=== PATIENT | male | born 1980 | race Caucasian/White ===

== ENCOUNTER 2021-05-15 10:08 | Inpatient (IN) ==
--- NOTE | 2021-04-28 11:56 | PAT Medication Instructions ---
Medication Instructions Date of Service April 28, 2021 Home Medications baclofen 10 mg tablet 10 mg PO DAILY PRN cholecalciferol (vitamin D3) 25 mcg (1,000 unit) tablet (Vitamin D3) 25 mcg PO QAM cyclobenzaprine 10 mg tablet 10 mg PO DAILY PRN ergocalciferol (vitamin D2) 1,250 mcg (50,000 unit) capsule (Vitamin D2) 1,250 mcg PO WK meloxicam 15 mg tablet 15 mg PO DAILY PRN Continue as directed ergocalciferol (vitamin D2) 1,250 mcg (50,000 unit) capsule (Vitamin D2) 1,250 mcg PO WK (just do not take morning of surgery) ASK your surgeon for instructions meloxicam 15 mg tablet 15 mg PO DAILY PRN DO NOT take the morning of surgery baclofen 10 mg tablet 10 mg PO DAILY PRN cholecalciferol (vitamin D3) 25 mcg (1,000 unit) tablet (Vitamin D3) 25 mcg PO QAM cyclobenzaprine 10 mg tablet 10 mg PO DAILY PRN Take evening before surgery baclofen 10 mg tablet 10 mg PO DAILY PRN (if needed) cyclobenzaprine 10 mg tablet 10 mg PO DAILY PRN (if needed) OTHERWISE NOTHING TO EAT OR DRINK AFTER MIDNIGHT Other Notes If you have any questions please call us at [phone] or [phone] or [phone] or [phone]
--- NOTE | 2021-05-01 09:43 | Anesthesiology Consultation ---
Date of Service May 01, 2021 Assessment & Plan (1) Encounter for pre-operative examination: - surgeon ordered medical clearance. - EGD/colonoscopy 05/11/2021. Bianca at surgeon's office made aware, case discussed with Dr. Clarke who advised this interval between procedures is acceptable. - COVID screening: Per assessment on 05/01/2021: Travel screen negative, no known COVID-19 positive contacts or current COVID-19 related symptoms in past 2 weeks. Surgeon arranging preop COVID testing, scheduled 05/11/2021. Awaiting results. Chart Review Chart Review: Pending: Refer to Additional Notes / Consult section and Patient seen in Pre Admission Testing Teaching & Discussion Pre-Anesthesia Teaching/Discussion Notes: Instructed NPO after midnight before surgery, except medications with 15 cc of water. Medication instructions provided according to the PAT guidelines. History Surgery Operation Date: 05/15/21 07:45 Proposed Procedures p L5-S1 Decompression and Fusion, Spinal Cord Monitoring - Levi Ma DO Height/Weight Height: 6 ft Weight: 83.915 kg Allergies Allergy/AdvReac Type Severity Reaction Status Date / Time No Known Allergies Allergy Mild Unverified 04/27/21 09:02 Medications Home Medications Medication Instructions Recorded Confirmed Last Taken baclofen 10 mg tablet 10 mg PO DAILY PRN 04/27/21 04/27/21 Unknown cholecalciferol (vitamin D3) 25 25 mcg PO QAM 04/27/21 04/27/21 Unknown mcg (1,000 unit) tablet (Vitamin D3) cyclobenzaprine 10 mg tablet 10 mg PO DAILY PRN 04/27/21 04/27/21 Unknown ergocalciferol (vitamin D2) 1,250 1,250 mcg PO WK 04/27/21 04/27/21 Unknown mcg (50,000 unit) capsule (Vitamin D2) meloxicam 15 mg tablet 15 mg PO DAILY PRN 04/27/21 04/27/21 Unknown Past Medical History Medical History Back pain Change in bowel habits upcoming colonoscopy/egd 05/11/21 History of COVID-19 03/2020; loss of taste/smell, cough, sob --> pneumonia; resolved. Lumbar disc disease Tinnitus Patient denies h/o stroke, seizures, heart attack, heart failure, DM, HTN, blood clots or blood transfusions. Exercise / Class Metabolic Activity II 4-5 Yardwork/Stairs/Walk up hill (walks 7-8 miles at work, with a few stairs, denies CP or SOB) Past Family History Family History Other No family history of adverse response to anesthesia Past Surgical History Surgical History History of wisdom tooth extraction Past Anesthesia History No Hx of Anesthesia Complications and No Family Hx of Anesthesia Complications History of PONV No Hx of PONV and No Hx of Motion Sickness Social History Smoking Status: Current every day smoker tobacco type: cigarettes Smoking cigarettes per day: 1/2 ppd-advised Do You Dip or Chew Tobacco: No Hx Alcohol Use: Yes Alcohol type: beer alcohol intake frequency: a few times a week Hx Substance Use: No substance use type: does not use Review of Systems Snoring, occasionally snores himself awake, denies witnessed apneas or sleep studies. Occasional reflux. Patient denies chest pain, shortness of breath, dyspnea on exertion, fever, chills, cough, wheezing, or palpitations. Physical Exam Vital Signs Vitals BP 121/76 P 66 TEMP 98.1 SP02 % on RA RESP 17 Physical Full cervical extension range of motion without pain Full TMJ range of motion TMD 3.5 finger breaths Mallampati Score 3 Dentition: intact, denies chipped, loose or missing teeth, caps/crowns, implants or bridges Lungs: normal respiratory effort. Clear throughout to auscultation, no adventitious breath sounds Cardiac: regular rate and rhythm, no murmurs noted Carotid arteries: negative bruit bilat Lab Results Anesthesia Preop Results Results Anesthesia Widget: PT 10.4 Seconds (9.0-12.0) 05/01/21 PTT 29.7 Seconds (21.0-31.0) 05/01/21 INR 1.0 (0.9-1.1) 05/01/21 Urine Appearance Clear 04/04/21 Blood Type O Positive 05/01/21 Antibody Screen NEGATIVE 05/01/21 Testing Laboratory Results 04/04/2021 WBC: 5.8 H/H: 16.2/47.5 PLATELETS: 204 SODIUM: 144 POTASSIUM: 4.3 CHLORIDE: 110 CO2: 21 BUN: 16 CREATININE: 1.1 GLUCOSE: 70 Electrocardiogram Date: 05/01/21 NSR, rate 64 bpm Chest X-Ray Date: 05/01/21 FINDINGS: Frontal and lateral radiographs of the chest demonstrate the cardiomediastinal silhouette to be within normal limits. The lungs are clear of alveolar opacities. There is no evidence for effusion bilaterally. There is no evidence for vascular congestion. There is no acute osseous pathology. Dextroscoliotic curve of the thoracic spine is again seen. IMPRESSION: 1. No acute cardiopulmonary disease.
[~2021-05-15 10:08] MED LIST: ACETAMINOPHEN 500 MG TAB PO SCH; CeleBREX 200 MG CAP PO SCH; GABAPENTIN 900 MG DOSE PO SCH; LR 15ML/HR IV SCH; ceFAZolin 2000MG 2,000 MG/15 ML SYR IV SCH
[2021-05-15] MEDS ORDERED: fentaNYL citrate 100 MCG/2 ML VIAL ONE (11:17)
[2021-05-15] MEDS ORDERED: GLYCOPYRROLATE 0.2 MG/ML VIAL ONE (11:17)
[2021-05-15] MEDS ORDERED: LIDOCAINE 2% 2 ML VIAL/AMP(20MG/ML) INFIL ONE (11:17)
[2021-05-15] MEDS ORDERED: PROPOFOL IV EMULSION 10 MG/ML 20 ML VIAL IV ONE (11:17)
[2021-05-15] MEDS ORDERED: ONDANSETRON INJ 2 MG/ML 2 ML VIAL ONE (11:17)
[2021-05-15] MEDS ORDERED: NEOSTIGMINE METHYLSULFATE 1 MG/ML 10ML VIAL ONE (11:17)
[2021-05-15] MEDS ORDERED: MIDAZOLAM HCL 1 MG/ML 2ML VIAL ONE (11:17)
[2021-05-15] MEDS ORDERED: DEXAMETHASONE SOD INJ 4 MG/ML VIAL ONE (11:17)
[2021-05-15] MEDS ORDERED: ONDANSETRON INJ 2 MG/ML 2 ML VIAL IV PRN ×2 (11:26→15:55)
[2021-05-15] MEDS ORDERED: PROMETHAZINE HCL 12.5 MG in SODIUM CHLORIDE 0.9% 50 ML IV PRN ×2 (11:26→15:55)
[2021-05-15] MEDS ORDERED: FLUMAZENIL 0.1 MG/1 ML 10 ML VIAL IV PRN (11:26)
[2021-05-15] MEDS ORDERED: LABETALOL HCL IV 5 MG/ML 20ML IV PRN (11:26)
[2021-05-15] MEDS ORDERED: ATROPINE SULFATE 0.1 MG/ML 10ML SYR IV PRN (11:26)
[2021-05-15] MEDS ORDERED: HYDROmorphone INJ 1 MG/ML SYRINGE IV PRN ×2 (11:26→15:55)
[2021-05-15] MEDS ORDERED: ePHEDrine sulfate 50 MG/ML AMP IV PRN (11:26)
[2021-05-15] MEDS ORDERED: NALOXONE HCL 0.4 MG/1 ML VIAL/CARP IV PRN ×2 (11:26→15:55)
--- NOTE | 2021-05-15 12:22 | History & Physical Bridge Note ---
Date of Service May 15, 2021 History & Physical Bridge Note I have examined the patient, reviewed the History & Physical and in the interval since the performance of the History & Physical I have noted the following changes of clinical significance: no changes noted
--- NOTE | 2021-05-15 12:23 | History & Physical Report ---
Date of Service May 15, 2021 Assessment & Plan (1) Neurogenic claudication due to lumbar spinal stenosis: Plan: L5-S1 decompression and fusion History of Present Illness Chief Complaint: Back and leg pain Primary Care Provider: NO PCP This is a 41-year-old male presents with chronic persistent back and leg pain af ter failing course of care is here for surgical intervention. Allergies Allergy/AdvReac Type Severity Reaction Status Date / Time No Known Allergies Allergy Mild Verified 05/15/21 10:16 Home Medications Medication Instructions Recorded Confirmed Type baclofen 10 mg tablet 10 mg PO DAILY PRN 04/27/21 05/15/21 History cholecalciferol (vitamin D3) 25 25 mcg PO QAM 04/27/21 05/15/21 History mcg (1,000 unit) tablet (Vitamin D3) cyclobenzaprine 10 mg tablet 10 mg PO DAILY PRN 04/27/21 05/15/21 History ergocalciferol (vitamin D2) 1,250 1,250 mcg PO WK 04/27/21 05/15/21 History mcg (50,000 unit) capsule (Vitamin D2) meloxicam 15 mg tablet 15 mg PO DAILY PRN 04/27/21 05/15/21 History Past Med/Surg History Medical History Back pain Change in bowel habits upcoming colonoscopy/egd 05/11/21 History of COVID-19 03/2020; loss of taste/smell, cough, sob --> pneumonia; resolved. Lumbar disc disease Tinnitus Surgical History History of wisdom tooth extraction Family History Other No family history of adverse response to anesthesia Social History Smoking Status: Current every day smoker Cigarettes Per Day: 1/2 ppd-advised; Second Hand Exposure: No; Do You Dip or Chew Tobacco: No; Tobacco Cessation Education Requested by Patient: No Hx Alcohol Use: Yes Alcohol type: beer Hx Substance Use: No Preferred Language: Nepalese Communication Ability: Effective Bandmill Operator Required: No Beliefs That Will Affect Care: None marital status: Current Living Situation: Spouse current occupational status: employed 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) Vital Signs (Past 12 Hours) Vital Signs Temp Pulse Resp BP Pulse Ox 05/15/21 10:29 36.7 C 75 18 125/76 95
[2021-05-15] MEDS ORDERED: ceFAZolin 330 MG/ML 1 GM VIAL ONE (12:36)
[2021-05-15] MEDS ORDERED: BUPIVACAINE/EPINEPHRINE 0.25% 1:200,000 30 ML VIAL ONE (12:36)
[2021-05-15] MEDS ORDERED: HYDROmorphone INJ 2 MG/ML SYR/VIAL ONE (13:28)
[2021-05-15] MEDS ORDERED: ROCURONIUM BROMIDE 10 MG/ML 5 ML VIAL IV ONE (13:33)
[2021-05-15] MEDS ORDERED: FLOSEAL HEMOSTATIC MATRIX 10ML TOP ONE (13:42)
--- NOTE | 2021-05-15 14:33 | Operative Report ---
Post Operative Report Pre & Post Diagnosis Operation Date: 05/15/21 11:25 Pre-Op Diagnosis: Neurogenic claudication due to lumbar spinal stenosis Post-Op Diagnosis: Neurogenic claudication due to lumbar spinal stenosis I identified the patient and participated in the time-out.: Yes Procedure Operation Date: 05/15/21 11:25 Actual Procedures #1 lumbar decompression with bilateral medial facetectomies and foraminotomies L4-L5 L5-S1. #2 posterior spinal fusion L5-S1. #3 placement posterior instrumentation L5-S1. #4 interbody fusion L5-S1. #5 placement of titanium 13 x 26 mm cage at L5-S1. #6 placement locally harvested morselized autograft in the posterior gutters. #7 placement of I factor combined with V toss in the interbody space and posterior lateral gutters. Surgeon Levi Ma, Filler In Cheli Grover Estimated Blood Loss 75 Findings Consistent with Post-Op Diagnosis Specimens None Indications This is a 41-year-old male who presents with chronic persistent lumbar radiculopathy. Failed extensive course of nonoperative care is here for surgical intervention. Description of Procedure Patient was met with identified informed consent obtained. Patient was then taken to the operative suite underwent an patient placed in a prone position on the Darek table on top of the Jarek frame. All bony prominences well-padded eyes inspected to ensure no external pressure placed upon them. This point the lumbar spine was prepped and draped in the normal sterile fashion. Sharp dissection with the assistance of Bovie cautery was performed down to and exposing the lamina and transverse processes L5 and the sacral ala bilaterally. From caudal to cephalad fashion complete laminectomy of L5 partial laminectomy of L4 was performed occluding bilateral medial facetectomies and foraminotomies dressing severe neural compression. Pedicle screws were then placed in L5 and S1 levels bilaterally with assistance of fluoroscopy and the appropriately sized kassidy placed. By way the transforaminal approach and left complete discectomy was performed endplates curetted to subcortical bleeding bone and a 13 x 26 mm titanium cage filled with I factor tapped in position. The rods were then compressed locked into final position bilaterally. The transverse processes of L5 and sacral ala burred to subcortically bone. I factor combined with Vitoss and locally harvested morselized autograft was placed in the posterior gutters. 15 round ADRYAN drain inserted. The incision was then closed with 1 Vicryl in the fascia 2-0 Vicryl subcutaneously and 4 Monocryl for final skin closure. Steri- Strips dressings placed. Patient will continue PACU stable condition. Please note spinal cord monitoring was utilized at the procedure no changes noted. Lastly Cheli Grover was present at the entire surgery and while the patient positioning complex portions of the surgery and final skin closure. I attest to the content of the Intraoperative Record and any orders documented therein. Any exceptions are noted below.
[2021-05-15] MEDS ORDERED: PHENYLEPHRINE 100MCG/ML 5ML SYR ONE (14:53)
--- NOTE | 2021-05-15 14:56 | Fluoroscopy Report ---
FL lumbar spine 2-3V CLINICAL HISTORY: L5-S1 DFI TECHNIQUE: 2 views were obtained with the C-arm in the OR with the above procedure. Total fluoroscopy time was 24.3 seconds. Total skin dose was 14.59 mGy. Comparison: None available at the time of this dictation. FINDINGS/IMPRESSION: Intraoperative images were obtained of L5-S1 decompression/fusion. Please correlate with intraoperative fluoroscopy and operative report. ACT 112: Negative or not required by law. Electronically signed by: Christian Hull M.D. 05/15/2021 2:55 PM
[2021-05-15] MEDS: fentaNYL citrate 100 MCG/2 ML VIAL IV PRN ×2 (15:07→15:12)
--- NOTE | 2021-05-15 15:21 | Anesthesiology Progress Note ---
Date of Service May 15, 2021 Anesthesia Post Procedure Vital Signs Vital Signs: Temp Pulse Pulse Resp BP Pulse Ox 05/15/21 15:15 72 13 121/87 98 05/15/21 15:05 70 12 122/82 100 05/15/21 14:55 68 15 128/81 100 05/15/21 14:46 36.1 C L 71 16 125/78 98 05/15/21 10:29 36.7 C 75 18 125/76 95 Pain Intensity Back: Pain Intensity: 3 Transfer of Care Handoff Completed per policy Notes Mental Status: alert / awake / arousable Patient Amnestic to Procedure: Yes Nausea / Vomiting: adequately controlled Pain: adequately controlled Airway Patency, RR, SpO2: stable & adequate BP & HR: stable & adequate Hydration State: stable & adequate Anesthetic Complications: no major complications apparent
[2021-05-15] MEDS ORDERED: METOCLOPRAMIDE HCL INJ 5 MG/ML 2 ML VIAL IV PRN (15:55)
[2021-05-15] MEDS ORDERED: ACETAMINOPHEN 1,000 MG/100 ML VIAL IV PRN (15:55)
[2021-05-15] MEDS ORDERED: traMADol HCL 50 MG TABLET PO PRN (15:55)
[2021-05-15] MEDS ORDERED: FAMOTIDINE 20 MG TAB PO PRN (15:55)
[2021-05-15] MEDS ORDERED: MAGNESIUM HYDROXIDE SUSP 30 ML UDC PO PRN (15:55)
[2021-05-15] MEDS ORDERED: diphenhydrAMINE Capsule 25 MG CAP PO PRN (15:55)
[2021-05-15] MEDS ORDERED: LACTATED RINGER'S 1,000 ML IV SCH (15:55)
[2021-05-15] MEDS ORDERED: DO NOT ADMINISTER PNEUMOCOCCAL VACCINE PRN (15:55)
[2021-05-15] MEDS ORDERED: ONDANSETRON 4 MG OD TAB PO PRN (15:55)
[2021-05-15] MEDS ORDERED: SOD PHOSPHATE/SOD BIPHOSPHATE ENEMA 132 ML BTL PR PRN (15:55)
[2021-05-15] MEDS ORDERED: ACETAMINOPHEN 500 MG TAB PO PRN (15:55)
[2021-05-15] MEDS ORDERED: LORazepam 2 MG/1 ML VIAL IV PRN (15:55)
[2021-05-15] MEDS ORDERED: LORazepam 0.5 MG TAB PO PRN (15:55)
[2021-05-15] MEDS ORDERED: ALUMINUM/MAGNESIUM SUSP 30 ML UDC PO PRN (15:55)
[2021-05-15] MEDS ORDERED: bisacodyL 10 MG SUPP PR PRN (15:55)
[2021-05-15] MEDS ORDERED: hydrOXYzine HCl 25 MG TAB PO PRN (15:55)
[2021-05-15] MEDS ORDERED: HYDROmorphone INJ 0.5 MG/0.5 ML SYR IV PRN (15:55)
[2021-05-15] MEDS ORDERED: DO NOT ADMINISTER FLU VACCINE PRN (15:55)
[2021-05-15] MEDS: KETOROLAC 30 MG/ML VIAL IV SCH ×2 (16:49→21:30)
[2021-05-15] MEDS: oxyCODONE HCL IR 5 MG TAB (IMMEDIATE RELEASE) PO PRN (19:45)
[2021-05-15] MEDS: ceFAZolin 2000MG 2,000 MG/15 ML SYR IV SCH (21:29)
[2021-05-15] MEDS: DOCUSATE SODIUM/SENNA 50/8.6MG TAB PO SCH (21:34)
[2021-05-16] MEDS: ceFAZolin 2000MG 2,000 MG/15 ML SYR IV SCH (05:04)
[2021-05-16] MEDS: KETOROLAC 30 MG/ML VIAL IV SCH ×2 (05:04→10:20)
[2021-05-16] MEDS: POLYETHYLENE (MIRALAX) 17 GM PACK PO SCH ×4 (05:05→23:08)
[2021-05-16 06:24] LABS: Basophils # (auto) 0.01 K/uL (0-0.2); Basophils % (auto) 0.1 %; Hematocrit (blood only) 43.2 % (42-52); Hemoglobin 14.7 g/dL (14.0-18.0); Immature Granulocytes # (auto) 0.04 K/uL (0.00-0.02); Immature Granulocytes % (auto) 0.4 %; Lymphocytes # (auto) 0.97 K/uL (1.2-3.4); Lymphocytes % (auto) 8.6 %; Mean Corpuscular Hemoglobin 31.8 pg (25-34); Mean Corpuscular Volume 93.5 fL (80-100); Mean Platelet Volume 10.9 fL (7.4-10.4); Monocytes % (auto) 6.2 %; Neutrophils # (auto) 9.57 K/uL (1.4-6.5); Neutrophils % (auto) 84.7 %; Platelet Count 215 K/uL (130-400); RDW Coefficient of Variation 12.3 % (11.5-14.5); RDW Standard Deviation 42.2 fL (36.4-46.3); Red Blood Count 4.62 M/uL (4.7-6.1); White Blood Count 11.29 K/uL (4.8-10.8)
[2021-05-16 06:46] LABS: BUN Creatinine Ratio 18.4 (10-20); Calcium 8.7 mg/dl (8.5-10.1); Creatinine Clr Calc Pharmacy 93.6 ml/min; Est GFR (African American) 92.1 ml/min; Est GFR (Non-African American) 79.4 ml/min; Potassium 4.6 mmol/L (3.5-5.1)
[2021-05-16] MEDS: CHOLECALCIFEROL 1,000 UNITS 25 MCG TAB PO SCH (08:23)
[2021-05-16] MEDS: dexAMETHasone 6 MG in SYRINGE 0 ML IV SCH (08:23)
[2021-05-16] MEDS ORDERED: ERGOCALCIFEROL 50,000 UNITS 1250 MCG CAP PO SCH (09:00)
--- NOTE | 2021-05-16 12:26 | Orthopedic Progress Note ---
Date of Service May 16, 2021 Assessment & Plan (1) Neurogenic claudication due to lumbar spinal stenosis: Plan: This time continue physical therapy monitor his ADRYAN output hopefully discharge home tomorrow Admission and Anticipated Discharge Date Admission Date: May 15, 2021 Subjective Back pain controlled leg symptoms improved Physical Exam Physical Exam: Patient is comfortable. Is good strength testing. Results & Data ([facility]) Vital Signs (Past 12 Hours) Vital Signs Temp Pulse Resp BP Pulse Ox 05/16/21 11:57 36.7 C 58 L 16 123/69 99 05/16/21 07:28 36.7 C 48 L 16 122/75 98 05/16/21 03:27 36.7 C 55 L 16 121/69 98
[2021-05-16] MEDS: oxyCODONE HCL IR 5 MG TAB (IMMEDIATE RELEASE) PO PRN ×2 (16:04→20:29)
[2021-05-16] MEDS: DOCUSATE SODIUM/SENNA 50/8.6MG TAB PO SCH (20:30)
[2021-05-17] MEDS: POLYETHYLENE (MIRALAX) 17 GM PACK PO SCH ×2 (05:40→13:11)
[2021-05-17] MEDS: oxyCODONE HCL IR 5 MG TAB (IMMEDIATE RELEASE) PO PRN ×2 (05:40→13:11)
[2021-05-17] MEDS: dexAMETHasone 6 MG in SYRINGE 0 ML IV SCH (08:29)
[2021-05-17] MEDS: CHOLECALCIFEROL 1,000 UNITS 25 MCG TAB PO SCH (08:29)
--- NOTE | 2021-05-17 10:33 | Discharge Summary ---
Date of Service May 17, 2021 Admission HPI Per Admitting Provider This is a 41-year-old male presents with chronic persistent back and leg pain after failing course of care is here for surgical intervention. Principal Diagnosis Lumbar spinal stenosis with radiculopathy Discharge Data Allergies Allergy/AdvReac Type Severity Reaction Status Date / Time No Known Allergies Allergy Mild Verified 05/15/21 10:16 Procedures Performed Operation Date: 05/15/21 11:25 Actual Procedures p L5-S1 Decompression and Fusion, Application of I-Factor Spinal Cord Monitoring, (Not Applicable) - Levi Ma DO Ordered Studies 05/15/21 11:25 [place] lumbar spine 2-3V Routine Hospital Course (1) Neurogenic claudication due to lumbar spinal stenosis: Patient with lumbar decompression fusion tolerated this well second orthopedic for possibly. Postop day 1 he was up and ambulating Eliot postop day #2. ADRYAN drain decreased appropriately. Leg pain markedly improved. Excellent strength testing. Subsequent discharge home. Discharge orders instructions from the chart for further view. Total Time Total Time Spent Total Time Spent (In Minutes): 20 minutes Discharge Plan Discharge Items Patient Disposition: Home - Self-Care Reason For Visit: Thoracolumbar and Lumbosacral Intervertebral Discharge Diagnosis: Lumbar spinal stenosis with radiculopathy Activity: As commented below Non-emergency contact: Primary Care Provider Call non-emergency contact if: you have any medication questions Follow-up/Referrals: PCP,ISMA [Primary Care Provider] - Diet: Regular Addtl Attending Provider Instructions: ACTIVITY RECOMMENDATIONS: SELF CARE INSTRUCTIONS AFTER THORACIC/LUMBAR FUSIONS 1. You may walk to your tolerance. It is good exercise for your legs and back. Expect some back and intermittent leg aches and pains. 2. You may perform "counter-top" level activities (make a sandwich, gustavo with a project, etc.). 3. No bending or lifting of more than 10 pounds or back twisting of any nature (roll like a log when turning in bed). 4. You may ride in a car for 20-30 minutes at a time. No driving until after your first visit with your doctor. 5. Frequent changes of position and restricting sitting to 30 minutes at a time will help limit the amount of back spasms and stiffness you may experience. 6. You may discontinue the use of ambulatory aids (cane, crutches, etc.) once your strength and confidence allow. 7. You may termination clerk the shower and let water strike your incision when you arrive home at least once daily. Do not take a tub bath, sit in a hot tub or go into a swimming pool until after your first recheck in the office. SPECIAL CARE INSTRUCTIONS: VERY IMPORTANT TO READ AND REVIEW A. Your surgical incision has been closed with a cosmetic suture under the skin that will dissolve in about 6 weeks. In 14 days, you can use a pair of clean scissors and cut the suture that is left outside of the skin at the ends of your incision. 1. The small skin tapes can be removed 7 days after surgery if they have not fallen off by that point. 2. You may keep the wound open to air as much as possible to promote healing after post-op day number 5 unless told otherwise by your doctor. 3. If you think the wound looks like it is becoming infected (redness or worsening drainage) and/or you are experiencing fever, chill or worsening back pain and muscle spasms, contact the office so that we may evaluate you as soon as possible. B. Complications are uncommon, but please contact us if you have any signs or symptoms of: 1. wound infection (fever higher than 102.5 degrees F, redness, separation of wound, drainage, or increasing pain from the incision) 2. blood clots in legs (pain, swelling, redness and warmth in legs) 3. urinary tract infection (fever higher than 102.5 degrees F, burning upon urination or increased frequency of urination) 4. nerve problems (inability to walk on your toes or heels, numbness, loss of bowel or bladder control) 5. any other symptoms that concern you C. Please call the office at if you have any concerns or questions about your operation or recovery. D. No smoking! Smoking drastically decreases the chance of a solid fusion. E. Do not take any anti-inflammatory medications (Indocin, Advil, Motrin, Aspirin, Naprosyn, etc.) as these may inhibit the chance of a solid fusion. Tylenol is okay to take for pain. MANAGING PAIN AFTER SPINAL SURGERY 1. Narcotic medication is intended for short-term use and will be provided for surgical pain. Surgical pain usually lasts for a period of 4-6 weeks. Narcotic medication includes Percocet, Vicodin, Darvocet, Tylenol #3 or Lortab. 2. Longer-term pain is more appropriately treated with non-narcotic medication such as Tylenol ES. 3. Muscle spasm is not appropriately treated with narcotics. Muscle relaxers such as Soma, Flexeril or Skelaxin can be used along with Tylenol ES. 4. Remember that we all live with some "aches and pains". This is not unusual or uncommon after an injury or as we get older. a. Back pain is expected and may include muscle spasms for 4 to 6 weeks after surgery. The pain should gradually improve. If the pain worsens for no apparent reason, please contact the office. b. Intermittent leg pain may also be experienced and should not be concerned about unless it worsens for no apparent reason. If so, please contact the office. 5. We will provide appropriate medication within the normal guidelines of their prescribed use. We will also be very cautious and aware of potential abuse and extended duration of patients' medication needs. a. Pain medications are for your comfort and to assist with sleep and rest so that the tissue can heal. They are not provided in order to return to normal activity and should not be used through the day. To do so or worsening pain at night can result from ongoing tissue damage and development of tolerance to the prescribed medicine. 6. Please allow 2-3 days to process refills. Prescriptions will not be mailed but must be picked up at the office. FOLLOW UP VISIT: Keep your scheduled follow-up appointment. Any questions, please call the office at . Pending Studies at Discharge: No Stand-Alone Forms: [facility], Opioid Pain Management, Smoking Cessation Medications and DC Order Prescriptions: New tramadol 50 mg tablet 50 mg PO Q6H PRN (Reason: pain, moderate) Qty: 30 RF: 0 oxycodone 5 mg tablet 5 mg PO Q6H PRN (Reason: pain, severe) Qty: 30 RF: 0 Continued cyclobenzaprine 10 mg Tablet 10 mg PO DAILY PRN (Reason: Muscle Spasm) RF: 0 baclofen 10 mg Tablet 10 mg PO DAILY PRN (Reason: Muscle Spasm) RF: 0 ergocalciferol (vitamin D2) [Vitamin D2] 1,250 mcg (50,000 unit) Capsule 1,250 mcg PO WK RF: 0 cholecalciferol (vitamin D3) [Vitamin D3] 25 mcg (1,000 unit) Tablet 25 mcg PO QAM RF: 0 Discontinued meloxicam 15 mg Tablet 15 mg PO DAILY PRN (Reason: Pain) RF: 0 Discharge Orders: Discharge Order (Routine); Ordered 05/17/21 Ordered By: Levi Harvey/Other Patient Handouts: Tramadol Oral Tablet 50 mg, Oxycodone Oral Tablet 5 mg Admission Data Admit Date/Time: 05/15/21 14:36 Attending Provider: Levi Ma Admit Provider: Levi Ma Primary Care Provider: PCP,ISMA
== END 2021-05-17 14:03 | disposition home or self-care (01) | DRG 455 ==
LOC: ASU 10:08 → 3E 14:36

== ENCOUNTER 2025-01-26 05:53 | Observation (INO) ==
[2025-01-26] MEDS: KETOROLAC TROMETHAMINE 15 MG/ML VIAL IV ONE (06:26)
[2025-01-26] MEDS: SODIUM CHLORIDE 0.9% 1,000 ML IV ONE (06:26)
[2025-01-26] MEDS: ONDANSETRON INJ 2 MG/ML 2 ML VIAL IV STA (06:26)
[2025-01-26] MEDS: MoRPHine SULFATE 4 MG/ML 1 ML CARP\\VIAL IV STA (06:26)
[2025-01-26 06:30] LABS: Appearance Urine Clear (Clear); Bacteria Urine Automated None Seen (None Seen); Cast Urine Automated 0-2 /lpf (0-2); Epithelial Cell Urine Auto 0-2 /hpf (0-2); Glucose Urine UA Negative (Negative); RBC Urine Automated 0-2 /hpf (0-2); WBC Urine Automated 0-5 /hpf (0-5)
[2025-01-26 06:37] LABS: Hematocrit (blood only) 45.9 % (42.0-52.0); Hemoglobin 16.1 g/dL (14.0-18.0); Immature Granulocytes # (auto) 0.08 K/uL (0.01-0.20); Immature Granulocytes % (auto) 0.5 %; Mean Corpuscular Hemoglobin 30.8 pg (25.0-34.0); Mean Corpuscular Volume 87.8 fL (80.0-100.0); Platelet Count 223 K/uL (130-400); RDW Standard Deviation 38.6 fL (36.4-46.3); Red Blood Count 5.23 M/uL (4.70-6.10); White Blood Count 17.44 K/ul (4.8-10.8)
--- NOTE | 2025-01-26 06:47 | Emergency Department Note ---
History of Present Illness General Chief complaint: Abdominal Pain Stated complaint: ABD PAIN Time Seen by Provider: 01/26/25 06:00 Source: patient Mode of arrival: ambulatory Limitations: no limitations History of Present Illness Maximum Pain Intensity: 8 Patient is a 45-year-old male who presents for right lower quadrant pain that started around Saturday evening. Pain is a constant sharp stabbing pain worse with movement. No radiation or migration of the pain since it began. No associated nausea, vomiting, testicular pain or swelling, change in urination. He does report some loose stools associated with his symptoms. No melena or hematochezia reported. Denies any fevers or chills. No sick contacts at home. No prior abdominal or pelvic surgeries. No recent international travel or antibiotics. Home Medications Medication Instructions Recorded Confirmed Type baclofen 10 mg tablet 10 mg PO DAILY PRN Muscle Spasm 04/27/21 05/15/21 History cholecalciferol (vitamin D3) 25 25 mcg PO QAM 04/27/21 05/15/21 History mcg (1,000 unit) tablet (Vitamin D3) cyclobenzaprine 10 mg tablet 10 mg PO DAILY PRN Muscle Spasm 04/27/21 05/15/21 History ergocalciferol (vitamin D2) 1,250 1,250 mcg PO WK 04/27/21 05/15/21 History mcg (50,000 unit) capsule (Vitamin D2) oxycodone 5 mg tablet 5 mg PO Q6H PRN pain, severe #30 05/16/21 Rx tabs tramadol 50 mg tablet 50 mg PO Q6H PRN pain, moderate 05/16/21 Rx #30 tabs Allergies Allergy/AdvReac Type Severity Reaction Status Date / Time No Known Allergies Allergy Mild Verified 05/15/21 10:16 Past Med/Surg History Problem List (Updated 01/26/25 @ 10:23 by Mik Mccurdy MD) Acute appendicitis (Acute) Acute appendicitis Neurogenic claudication due to lumbar spinal stenosis Encounter for pre-operative examination Abscess and cellulitis (Acute) Urinary symptom or sign Post-void dribbling Testicular pain Medical History Back pain Change in bowel habits upcoming colonoscopy/egd 05/11/21 History of COVID-19 03/2020; loss of taste/smell, cough, sob --> pneumonia; resolved. 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 Physical Exam Vital Signs Vital Signs - 24 hr 01/26/25 05:58 01/26/25 06:10 01/26/25 06:10 Temperature 37.2 C Temperature Source Oral Pulse Rate 110 H 97 H Pulse Rate [Apical] 97 H Pulse Rate from SpO2 Sensor Pulse Rhythm Respiratory Rate 18 22 Respiratory Effort / Characteristics Non-Labored Spontaneous Non-Labored Spontaneous Respiratory Depth Normal Respiratory Pattern Regular Blood Pressure 137/86 Blood Pressure [Right Arm] 141/88 H Blood Pressure Mean 103 Blood Pressure Mean [Right Arm] 105 Blood Pressure Position Sitting Blood Pressure Position [Right Arm] Lying Pulse Oximetry 95 95 Oxygen Delivery Method Room Air Room Air Sepsis Recent Fever Within 48 Hours No Sepsis New/Unexplained Change in Mental Status N/A Sepsis Action Taken by Nursing No Action Required 01/26/25 06:20 01/26/25 07:00 01/26/25 07:00 Temperature Temperature Source Pulse Rate 87 78 Pulse Rate [Apical] Pulse Rate from SpO2 Sensor 79 Pulse Rhythm Regular Respiratory Rate 18 17 Respiratory Effort / Characteristics Respiratory Depth Respiratory Pattern Blood Pressure 115/81 Blood Pressure [Right Arm] Blood Pressure Mean 93 Blood Pressure Mean [Right Arm] Blood Pressure Position Blood Pressure Position [Right Arm] Pulse Oximetry 95 94 Oxygen Delivery Method Room Air Sepsis Recent Fever Within 48 Hours Sepsis New/Unexplained Change in Mental Status Sepsis Action Taken by Nursing 01/26/25 07:30 01/26/25 07:30 01/26/25 08:00 Temperature Temperature Source Pulse Rate 78 73 Pulse Rate [Apical] Pulse Rate from SpO2 Sensor 77 74 Pulse Rhythm Respiratory Rate 18 20 Respiratory Effort / Characteristics Respiratory Depth Respiratory Pattern Blood Pressure 124/76 Blood Pressure [Right Arm] Blood Pressure Mean 85 Blood Pressure Mean [Right Arm] Blood Pressure Position Blood Pressure Position [Right Arm] Pulse Oximetry 94 94 Oxygen Delivery Method Sepsis Recent Fever Within 48 Hours Sepsis New/Unexplained Change in Mental Status Sepsis Action Taken by Nursing 01/26/25 08:00 01/26/25 08:30 01/26/25 08:30 Temperature Temperature Source Pulse Rate 71 Pulse Rate [Apical] Pulse Rate from SpO2 Sensor 71 Pulse Rhythm Respiratory Rate 20 Respiratory Effort / Characteristics Respiratory Depth Respiratory Pattern Blood Pressure 113/74 116/80 Blood Pressure [Right Arm] Blood Pressure Mean 86 90 Blood Pressure Mean [Right Arm] Blood Pressure Position Blood Pressure Position [Right Arm] Pulse Oximetry 94 Oxygen Delivery Method Room Air Sepsis Recent Fever Within 48 Hours Sepsis New/Unexplained Change in Mental Status Sepsis Action Taken by Nursing 01/26/25 10:20 Temperature Temperature Source Pulse Rate 90 Pulse Rate [Apical] Pulse Rate from SpO2 Sensor Pulse Rhythm Respiratory Rate Respiratory Effort / Characteristics Respiratory Depth Respiratory Pattern Blood Pressure Blood Pressure [Right Arm] Blood Pressure Mean Blood Pressure Mean [Right Arm] Blood Pressure Position Blood Pressure Position [Right Arm] Pulse Oximetry Oxygen Delivery Method Sepsis Recent Fever Within 48 Hours Sepsis New/Unexplained Change in Mental Status Sepsis Action Taken by Nursing See below Constitutional WD/WN, vitals as above Respiratory normal respiratory effort, lungs clear to auscultation Cardiovascular RRR, no murmur, no edema Gastrointestinal (Abdomen) Inspection/Auscultation: abdomen normal to inspection; abdomen not distended Percussion/Palpation: + abdomen tender (TTP in RLQ ), + guarding (Guarding in RLQ ) and abdomen soft; abdomen not rigid Course Administered Medications Discontinued Medications Sodium Chloride (Nss) 1,000 mls @ 999 mls/hr IV .Q1H1M ONE Stop: 01/26/25 07:17 Last Infusion: 01/26/25 07:43 Dose: Infused Documented By: Admin: 01/26/25 06:26 Dose: 999 mls/hr Documented By: CDM Piperacillin Sod/Tazobactam Sod (Zosyn) 4.5 gm in 100 mls @ 200 mls/hr IV NOW ONE; Protocol Stop: 01/26/25 08:21 Last Infusion: 01/26/25 08:55 Dose: Infused Documented By: Admin: 01/26/25 08:23 Dose: 200 mls/hr Documented By: LUCIEN Ioversol (Optiray 320 100ml) 94 ml IV ONCE ONE Stop: 01/26/25 07:19 Last Admin: 01/26/25 07:18 Dose: 94 ml Documented By: KEVIN Ketorolac Tromethamine (Ketorolac Tromethamine 15 Mg/Ml Vial) 15 mg IV NOW ONE Stop: 01/26/25 06:18 Last Admin: 01/26/25 06:26 Dose: 15 mg Documented By: DAWN Morphine Sulfate (Morphine Sulfate 4 Mg/Ml 1 Ml Carp\Vial) 4 mg IV NOW STA Stop: 01/26/25 06:18 Last Admin: 01/26/25 06:26 Dose: 4 mg Documented By: DAWN Ondansetron HCl (Ondansetron Inj 2 Mg/Ml 2 Ml Vial) 4 mg IV NOW STA Stop: 01/26/25 06:18 Last Admin: 01/26/25 06:26 Dose: 4 mg Documented By: DAWN Medical Decision Making Differential Diagnosis DDx includes but not limited to: Appendicitis, gastroenteritis, constipation, mesenteric adenitis, epiploic appendagitis, colitis, IBD, IBS, obstructive uropathy, musculoskeletal strain Medical Records Attestation: I reviewed the patient's medical records. Home Medications Current Medication List: was personally reviewed by me Laboratory Data Attestation: I reviewed the patient's lab results. 01/26/25 06:09 01/26/25 06:09 Lab Results 01/26/25 01/26/25 Range/Units 06:09 06:18 WBC 17.44 H (4.8-10.8) K/ul RBC 5.23 (4.70-6.10) M/uL Hgb 16.1 (14.0-18.0) g/dL Hct 45.9 (42.0-52.0) % MCV 87.8 (80.0-100.0) fL MCH 30.8 (25.0-34.0) pg MCHC 35.1 (32.0-36.0) g/dL RDW Std Deviation 38.6 (36.4-46.3) fL RDW Coeff of Katie 12.0 (11.5-14.5) % Plt Count 223 (130-400) K/uL MPV 10.8 (9.4-12.4) fL Immature Gran % (Auto) 0.5 % Neut % (Auto) 81.2 % Lymph % (Auto) 10.7 % [place] % (Auto) 7.3 % Eos % (Auto) 0.1 % Baso % (Auto) 0.2 % Neut # (Auto) 14.16 H (1.40-6.50) K/uL Lymph # (Auto) 1.87 (1.20-3.40) K/uL [place] # (Auto) 1.27 H (0.11-0.59) K/uL Eos # (Auto) 0.02 (0.00-0.50) K/uL Baso # (Auto) 0.04 (0.00-0.20) K/uL Immature Gran # (Auto) 0.08 (0.01-0.20) K/uL Sodium 133 L (136-145) mmol/L Potassium 3.7 (3.5-5.1) mmol/L Chloride 97 L (98-107) mmol/L Carbon Dioxide 23 (21-32) mmol/L Anion Gap 13 H (3-11) BUN 16 (6-23) mg/dl Creatinine 1.26 (0.6-1.4) mg/dl Est Cr Clr Drug Dosing 88.7 ml/min eGFR 71.68 BUN/Creatinine Ratio 12.7 (10-20) Glucose 110 H (70-99(Fasting)) mg/dl Calcium 9.4 (8.6-10.3) mg/dl Total Bilirubin 1.0 (0.2-1.0) mg/dl AST 13 (13-39) U/L ALT 23 (7-52) U/L Alkaline Phosphatase 74 (34-104) U/L Total Protein 8.1 (6.0-8.3) gm/dl Albumin 4.2 (3.4-5.0) gm/dl Globulin 3.9 (2.5-4.0) gm/dl Albumin/Globulin Ratio 1.1 (0.9-2) Lipase 7 L (11-82) U/L Urine Color [place] Urine Appearance Clear (Clear) Urine pH 6.0 (4.5-7.5) Ur Specific [place] 1.026 (1.000-1.030) Urine Protein 2+ H (Negative) Urine Glucose (UA) Negative (Negative) Urine Ketones 3+ H (Negative) Urine Blood Negative (Negative) Urine Nitrite Negative (Negative) Urine Bilirubin 2+ H (Negative) Urine Urobilinogen Positive H (Negative) Ur Leukocyte Esterase Trace H (Negative) Urine WBC (Auto) 0-5 (0-5) /hpf Urine RBC (Auto) 0-2 (0-2) /hpf U Hyaline Cast (Auto) 0-2 (0-2) /lpf U Epithel Cells (Auto) 0-2 (0-2) /hpf Urine Bacteria (Auto) None Seen (None Seen) Urine Comment Imaging Data Radiologist's Impression: Abdomen/Pelvis CT 01/26/25 06:16 EXAM: CT abd pelvis IV con only CLINICAL HISTORY: RLQ pain TECHNIQUE: Contrast-enhanced CT of the abdomen and pelvis was performed, with the following protocol: axial images with, and reconstructed coronal and sagittal images. 94 ml optiray 320 Intravenous contrast was administered. One of the following dose reduction techniques was utilized for this exam: Automated exposure control, adjustment of the mA and/or kV according to patient size, and use of iterative reconstruction. COMPARISON: None. FINDINGS: Abdomen: Liver: Measuring 17.5 cm in length with normal shape, and density. No focal lesions, cysts, or masses were identified. Hepatic vasculature and biliary ducts are unremarkable. Gallbladder and Biliary System: The gallbladder is normal in size and shape. No wall thickening, pericholecystic fluid, or gallstones were identified. The common bile duct is normal in caliber without dilation. Pancreas: Pancreatic head, body, and tail are visualized and appear normal in size and density. No pancreatic masses or calcifications were noted. The pancreatic duct is not dilated. Spleen: Measuring 13.5 cm in length with normal shape, and density. No splenic lesions or masses were identified. Appendix: Appendix is distended (14.5 mm) with intra-luminal appendicolith and fluid content showing mild enhancing thickened wall with severe fat stranding, multiple subcentimetric lymph nodes and mild fluid. No evidence of appendiceal abscess. Kidneys and Adrenal Glands: Both kidneys are normal in size, shape, and position. Cortical thickness is within normal limits. No renal calculi or hydronephrosis. Adrenal glands are unremarkable with no evidence of masses or hyperplasia. Pelvis: Urinary Bladder: Un-distended urinary bladder with mild wall thickening. No intraluminal lesions identified. Prostate: Normal in size and contour. No focal lesions or masses identified. Seminal Vesicles: Normal in size and appearance. No abnormalities noted. Rectum and Sigmoid Colon: Normal wall thickness and no evidence of mass. Bowel: The visualized bowel loops are normal in caliber and appearance. Mild distal ileal wall thickening, likely reactionary. Small hiatus hernia. Bones and Soft Tissues: Pelvic bones and soft tissues are unremarkable. No fractures or abnormal masses were identified. Evidence of previous internal fixation at L5 and S1 vertebrae by metallic plate and screws. Scanned lung bases show bilateral lower lobes atelectatic bands. Minimal bilateral pleural effusion. IMPRESSION: Picture of acute appendicitis, appears distended with appendicolith, marked related fat stranding Adjacent ileal bowel ooops appears thickened, could be reactive/ secondary involvement by inflammatory process Small hiatus hernia. Minimal bilateral pleural effusion. Mild hepatosplenomegaly. Electronically signed by Bart Bynum 01-26-2025 08:26 AM MDM Narrative Patient is a 45-year-old male presents with right lower quadrant pain since Saturday. Hemodynamically stable. Afebrile nontoxic-appearing. Nonrigid nonperitoneal abdominal exam. Lab work notable for leukocytosis of 17,000. No evidence of endorgan damage or concern for sepsis. CT of the abdomen pelvis shows acute appendicitis without perforation. Spoke with Dr. Fuller with general surgery who plans to take patient to the OR for definitive management. Zosyn started here in the ED per surgery request. Impression & Plan Acute appendicitis Discharge Plan Visit Data Chief Complaint: Abdominal Pain Stated Complaint: ABD PAIN ED Provider: Mik Mccurdy Discharge Problem: Acute appendicitis Patient Disposition: Admitted As Inpatient Condition: Good Forms Stand Alone Forms: [employer] Prescriptions Prescriptions: No Action cyclobenzaprine 10 mg Tablet 10 mg PO DAILY PRN (Reason: Muscle Spasm) baclofen 10 mg Tablet 10 mg PO DAILY PRN (Reason: Muscle Spasm) ergocalciferol (vitamin D2) [Vitamin D2] 1,250 mcg (50,000 unit) Capsule 1,250 mcg PO WK cholecalciferol (vitamin D3) [Vitamin D3] 25 mcg (1,000 unit) Tablet 25 mcg PO QAM tramadol 50 mg tablet 50 mg PO Q6H PRN (Reason: pain, moderate) Qty: 30 0RF oxycodone 5 mg tablet 5 mg PO Q6H PRN (Reason: pain, severe) Qty: 30 0RF Referrals Referrals: Graciela Kaur PA-C [Primary Care Provider] -
[2025-01-26 06:58] LABS: Alanine Aminotransferase 23.0 U/L (7-52); Albumin Globulin Ratio 1.1 (0.9-2); Albumin Level 4.2 gm/dl (3.4-5.0); Alkaline Phosphatase 74.0 U/L (34-104); Anion Gap 13.0 (3-11); Bilirubin,Total 1.0 mg/dl (0.2-1.0); Blood Urea Nitrogen 16.0 mg/dl (6-23); Calcium 9.4 mg/dl (8.6-10.3); Carbon Dioxide 23.0 mmol/L (21-32); Chloride 97.0 mmol/L (98-107); Creatinine Clr Calc Pharmacy 88.7 ml/min; Globulin 3.9 gm/dl (2.5-4.0); Glucose 110.0 mg/dl (70-99(Fasting)); Lipase 7.0 U/L (11-82); Potassium 3.7 mmol/L (3.5-5.1); Sodium 133.0 mmol/L (136-145); Total Protein 8.1 gm/dl (6.0-8.3)
[2025-01-26] MEDS: OPTIRAY 320 100ml IV ONE (07:18)
[2025-01-26] MEDS: PIPERACILLIN/TAZOBACTAM 4.5 GM/100 ML BAG IV ONE (08:23)
--- NOTE | 2025-01-26 08:28 | CT Scan Report ---
EXAM: CT abd pelvis IV con only CLINICAL HISTORY: RLQ pain TECHNIQUE: Contrast-enhanced CT of the abdomen and pelvis was performed, with the following protocol: axial images with, and reconstructed coronal and sagittal images. 94 ml optiray 320 Intravenous contrast was administered. One of the following dose reduction techniques was utilized for this exam: Automated exposure control, adjustment of the mA and/or kV according to patient size, and use of iterative reconstruction. COMPARISON: None. FINDINGS: Abdomen: Liver: Measuring 17.5 cm in length with normal shape, and density. No focal lesions, cysts, or masses were identified. Hepatic vasculature and biliary ducts are unremarkable. Gallbladder and Biliary System: The gallbladder is normal in size and shape. No wall thickening, pericholecystic fluid, or gallstones were identified. The common bile duct is normal in caliber without dilation. Pancreas: Pancreatic head, body, and tail are visualized and appear normal in size and density. No pancreatic masses or calcifications were noted. The pancreatic duct is not dilated. Spleen: Measuring 13.5 cm in length with normal shape, and density. No splenic lesions or masses were identified. Appendix: Appendix is distended (14.5 mm) with intra-luminal appendicolith and fluid content showing mild enhancing thickened wall with severe fat stranding, multiple subcentimetric lymph nodes and mild fluid. No evidence of appendiceal abscess. Kidneys and Adrenal Glands: Both kidneys are normal in size, shape, and position. Cortical thickness is within normal limits. No renal calculi or hydronephrosis. Adrenal glands are unremarkable with no evidence of masses or hyperplasia. Pelvis: Urinary Bladder: Un-distended urinary bladder with mild wall thickening. No intraluminal lesions identified. Prostate: Normal in size and contour. No focal lesions or masses identified. Seminal Vesicles: Normal in size and appearance. No abnormalities noted. Rectum and Sigmoid Colon: Normal wall thickness and no evidence of mass. Bowel: The visualized bowel loops are normal in caliber and appearance. Mild distal ileal wall thickening, likely reactionary. Small hiatus hernia. Bones and Soft Tissues: Pelvic bones and soft tissues are unremarkable. No fractures or abnormal masses were identified. Evidence of previous internal fixation at L5 and S1 vertebrae by metallic plate and screws. Scanned lung bases show bilateral lower lobes atelectatic bands. Minimal bilateral pleural effusion. IMPRESSION: Picture of acute appendicitis, appears distended with appendicolith, marked related fat stranding Adjacent ileal bowel ooops appears thickened, could be reactive/ secondary involvement by inflammatory process Small hiatus hernia. Minimal bilateral pleural effusion. Mild hepatosplenomegaly. Electronically signed by Bart Bynum 01-26-2025 08:26 AM
--- NOTE | 2025-01-26 09:18 | History & Physical Report ---
Date of Service January 26, 2025 Assessment & Plan (1) Acute appendicitis: Plan: Plan will be for admission, IV antibiotics, and laparoscopic, possible robotic assisted, possible open appendectomy and all other indicated procedures. Risks of procedure were discussed with the patient and they include bleeding, infection, injury to surrounding structures, need for further procedures, retained appendix, appendiceal stump leak, wound issues to include wound infection, dehiscence, and hernia, and cardiopulmonary events that can occur. Alternatives include no surgery, which the patient declines. Patient wishes to proceed with surgery. All questions were answered. History of Present Illness Chief Complaint: Abdominal pain Primary Care Provider: Graciela Kaur PA-C Patient is a 45-year-old male with a history of abdominal pain and generalized malaise that progressively worsened that began on January 22. He reports that yesterday he started to feel little better but then the pain worsened overnight. He has a history of colonoscopy about 3 years ago for left- sided abdominal pain, that he reports was normal. He has had back surgery in the past. He has no pertinent family medical history. He takes no medications. He reports he had a low-grade fever this morning. He presented to the emergency room where workup reveals acute appendicitis with fecalith and inflammation. Allergies Allergy/AdvReac Type Severity Reaction Status Date / Time No Known Allergies Allergy Mild Verified 05/15/21 10:16 Home Medications Medication Instructions Recorded Confirmed Type baclofen 10 mg tablet 10 mg PO DAILY PRN Muscle Spasm 04/27/21 05/15/21 History cholecalciferol (vitamin D3) 25 25 mcg PO QAM 04/27/21 05/15/21 History mcg (1,000 unit) tablet (Vitamin D3) cyclobenzaprine 10 mg tablet 10 mg PO DAILY PRN Muscle Spasm 04/27/21 05/15/21 History ergocalciferol (vitamin D2) 1,250 1,250 mcg PO WK 04/27/21 05/15/21 History mcg (50,000 unit) capsule (Vitamin D2) oxycodone 5 mg tablet 5 mg PO Q6H PRN pain, severe #30 05/16/21 Rx tabs tramadol 50 mg tablet 50 mg PO Q6H PRN pain, moderate 05/16/21 Rx #30 tabs Past Med/Surg History Problem List (Updated 01/26/25 @ 09:20 by Dottie Fuller MD) Acute appendicitis Neurogenic claudication due to lumbar spinal stenosis Encounter for pre-operative examination Abscess and cellulitis (Acute) Urinary symptom or sign Post-void dribbling Testicular pain Medical History Back pain Change in bowel habits upcoming colonoscopy/egd 05/11/21 History of COVID-19 03/2020; loss of taste/smell, cough, sob --> pneumonia; resolved. Lumbar disc disease Tinnitus Surgical History History of wisdom tooth extraction Family History Other No family history of adverse response to anesthesia Social History Smoking Status: Never smoker Cigarettes Per Day: 1/2 ppd-advised; Second Hand Exposure: No; Do You Dip or Chew Tobacco: No; Hx Alcohol Use: Yes Alcohol type: beer Hx Substance Use: No Preferred Language: Spanish Communication Ability: Effective Visual Impairment: No Limitations Wire Frame Dipper Required: No Beliefs That Will Affect Care: None marital status: Current Living Situation: Spouse current occupational status: employed 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 Feels Safe at Home: Yes Assistive Devices: Walker Review of Systems Review of Systems: All systems reviewed & are unremarkable except as noted in HPI & below Physical Exam Constitutional: WD/WN, vitals as above Eyes: PERRL, conjunctivae normal, anicteric sclerae ENMT: external ear and nose normal, oropharynx normal Neck: trachea midline, no thyromegaly Respiratory: Normal effort Cardiovascular: RRR, no murmur, no edema Gastrointestinal (Abdomen): Soft, nondistended, tender to palpation in right lower quadrant, no peritoneal signs Musculoskeletal: No concerning abnormalities Skin: no rashes, warm and dry Neurologic: No concerning abnormalities Psychiatric: A+Ox3, euthymic affect Results & Data Results & Data Vital Signs (Past 12 Hours) Vital Signs Temp Pulse Pulse Resp BP BP Pulse Ox 01/26/25 08:30 71 20 94 01/26/25 08:30 116/80 01/26/25 08:00 113/74 01/26/25 08:00 73 20 94 01/26/25 07:30 124/76 01/26/25 07:30 78 18 94 01/26/25 07:00 115/81 01/26/25 07:00 78 17 94 01/26/25 06:20 87 18 95 01/26/25 06:10 97 H 01/26/25 06:10 97 H 22 141/88 H 95 01/26/25 05:58 37.2 C 110 H 18 137/86 95 O2 Del Method 01/26/25 08:30 Room Air 01/26/25 08:30 01/26/25 08:00 01/26/25 08:00 01/26/25 07:30 01/26/25 07:30 01/26/25 07:00 01/26/25 07:00 01/26/25 06:20 Room Air 01/26/25 06:10 01/26/25 06:10 Room Air 01/26/25 05:58 Room Air Laboratory Results Notable for elevated white blood cell count Diagnostic Findings Imaging was independently reviewed by myself and it does show acute appendicitis with fecalith and surrounding fat stranding and inflammation [place], [place] [phone] CT Scan Report Patient: ASHANTI OCONNELL Admit Date: 01/26/25 MR#: [id number] Address[address]: [address] Acct ID:[id number] Address2: Date: [address] [facility] Zip: [place] [address] Age: 45 Location: ED Sex: M Room/Bed: Att Phy: Diagnosis: ABD PAIN, FEVER Susan Phy: Graciela Kaur PA-C Service Date: 01/26/25 Fam Phy: Interpreting Phy: Bart Bynum MDAdmit Phy: Ordering Phy: Mik Mccurdy MD cc: ~ ADDENDUM Addendum Report EXAM: CT abd pelvis IV con only ADDENDUM: [facility] was called at at 07:40 AM HIM DIRECTOR, 01/26/2025 and Doctor , Mik Esquivel was informed regarding the presence of Critical medical findings in the report and he confirmed that they have received the report. Electronically signed by Bart Bynum 01-26-2025 08:44 AM ADDENDUM END EXAM: CT abd pelvis IV con only CLINICAL HISTORY: RLQ pain TECHNIQUE: Contrast-enhanced CT of the abdomen and pelvis was performed, with the following protocol: axial images with, and reconstructed coronal and sagittal images. 94 ml optiray 320 Intravenous contrast was administered. One of the following dose reduction techniques was utilized for this exam: Automated exposure control, adjustment of the mA and/or kV according to patient size, and use of iterative reconstruction. COMPARISON: None. FINDINGS: Abdomen: Liver: Measuring 17.5 cm in length with normal shape, and density. No focal lesions, cysts, or masses were identified. Hepatic vasculature and biliary ducts are unremarkable. Gallbladder and Biliary System: The gallbladder is normal in size and shape. No wall thickening, pericholecystic fluid, or gallstones were identified. The common bile duct is normal in caliber without dilation. Pancreas: Pancreatic head, body, and tail are visualized and appear normal in size and density. No pancreatic masses or calcifications were noted. The pancreatic duct is not dilated. Spleen: Measuring 13.5 cm in length with normal shape, and density. No splenic lesions or masses were identified. Appendix: Appendix is distended (14.5 mm) with intra-luminal appendicolith and fluid content showing mild enhancing thickened wall with severe fat stranding, multiple subcentimetric lymph nodes and mild fluid. No evidence of appendiceal abscess. Kidneys and Adrenal Glands: Both kidneys are normal in size, shape, and position. Cortical thickness is within normal limits. No renal calculi or hydronephrosis. Adrenal glands are unremarkable with no evidence of masses or hyperplasia. Pelvis: Urinary Bladder: Un-distended urinary bladder with mild wall thickening. No intraluminal lesions identified. Prostate: Normal in size and contour. No focal lesions or masses identified. Seminal Vesicles: Normal in size and appearance. No abnormalities noted. Rectum and Sigmoid Colon: Normal wall thickness and no evidence of mass. Bowel: The visualized bowel loops are normal in caliber and appearance. Mild distal ileal wall thickening, likely reactionary. Small hiatus hernia. Bones and Soft Tissues: Pelvic bones and soft tissues are unremarkable. No fractures or abnormal masses were identified. Evidence of previous internal fixation at L5 and S1 vertebrae by metallic plate and screws. Scanned lung bases show bilateral lower lobes atelectatic bands. Minimal bilateral pleural effusion. IMPRESSION: Picture of acute appendicitis, appears distended with appendicolith, marked related fat stranding Adjacent ileal bowel ooops appears thickened, could be reactive/ secondary involvement by inflammatory process Small hiatus hernia. Minimal bilateral pleural effusion. Mild hepatosplenomegaly. Code Status & VTE Plan VTE Prophylaxis Plan VTE Prophylaxis will be ordered: Yes PG Care Time/CCT Total # of Minutes Spent Total Time Spent with Patient: Total time spent is greater than 50% in coordination of care (as documented) at patient's floor/unit and/or counseling patient: Coding Level of Care Code 09066 INT INP/OBS CARE MIN Diagnoses Acute appendicitis with localized peritonitis, without perforation or abscess, unspecified whether gangrene present K35.30 Acute appendicitis type: with localized peritonitis Appendicitis gangrene presence: unspecified whether gangrene present Appendicitis perforation presence: without perforation Appendicitis abscess presence: without abscess (1) Acute appendicitis Acute appendicitis type: with localized peritonitis Appendicitis gangrene presence: unspecified whether gangrene present Appendicitis perforation presence: without perforation Appendicitis abscess presence: without abscess Qualified Code(s): K35.30 - Acute appendicitis with localized peritonitis, without perforation or gangrene
[2025-01-26] MEDS ORDERED: ATROPINE SULFATE 0.1 MG/ML 10ML SYR IV PRN (11:39)
[2025-01-26] MEDS ORDERED: ONDANSETRON INJ 2 MG/ML 2 ML VIAL IV PRN (11:39)
--- NOTE | 2025-01-26 11:39 | Anesthesiology Consultation ---
Date of Service January 26, 2025 Assessment & Plan Chart Review Chart Review: Acceptable Risk for Surgery, Patient NOT seen in Pre Admission Testing and entry manager initiated Consults Requested none History Surgery Operation Date: 01/26/25 10:20 Proposed Procedures p Laparoscopic Appendectomy - Dottie Fuller MD Height/Weight Height: 6 ft Weight: 95.3 kg Allergies Allergy/AdvReac Type Severity Reaction Status Date / Time No Known Allergies Allergy Mild Verified 05/15/21 10:16 Medications Home Medications Medication Instructions Recorded Confirmed Last Taken baclofen 10 mg tablet 10 mg PO DAILY PRN Muscle Spasm 04/27/21 05/15/21 04/25/21 cholecalciferol (vitamin D3) 25 25 mcg PO QAM 04/27/21 05/15/21 05/12/21 mcg (1,000 unit) tablet (Vitamin D3) cyclobenzaprine 10 mg tablet 10 mg PO DAILY PRN Muscle Spasm 04/27/21 05/15/21 05/08/21 ergocalciferol (vitamin D2) 1,250 1,250 mcg PO WK 04/27/21 05/15/21 05/09/21 mcg (50,000 unit) capsule (Vitamin D2) oxycodone 5 mg tablet 5 mg PO Q6H PRN pain, severe #30 05/16/21 Unknown tabs tramadol 50 mg tablet 50 mg PO Q6H PRN pain, moderate 05/16/21 Unknown #30 tabs Past Medical History Medical History Lumbar disc disease Back pain History of COVID-19 03/2020; loss of taste/smell, cough, sob --> pneumonia; resolved. Change in bowel habits upcoming colonoscopy/egd 05/11/21 Tinnitus Past Family History Family History Other No family history of adverse response to anesthesia Past Surgical History Surgical History History of wisdom tooth extraction Social History Smoking Status: Never smoker tobacco type: cigarettes Smoking cigarettes per day: 1/2 ppd-advised Do You Dip or Chew Tobacco: No Hx Alcohol Use: Yes Alcohol type: beer alcohol intake frequency: a few times a week Hx Substance Use: No substance use type: does not use Physical Exam Vital Signs Last Vital Signs Temp 37.2 C 01/26/25 05:58 Pulse 72 01/26/25 10:30 Resp 24 01/26/25 10:30 BP 113/74 01/26/25 10:30 Pulse Ox 97 01/26/25 10:00 O2 Del Method Room Air 01/26/25 10:00 Testing Laboratory Results 01/26/25 06:09 01/26/25 06:09 Urine Color [place] 01/26/25 06:18 Urine Appearance Clear (Clear) 01/26/25 06:18 Urine pH 6.0 (4.5-7.5) 01/26/25 06:18 Ur Specific [place] 1.026 (1.000-1.030) 01/26/25 06:18 Urine Protein 2+ (Negative) H 01/26/25 06:18 Urine Glucose (UA) Negative (Negative) 01/26/25 06:18 Urine Ketones 3+ (Negative) H 01/26/25 06:18 Urine Nitrite Negative (Negative) 01/26/25 06:18 Ur Leukocyte Esterase Trace (Negative) H 01/26/25 06:18 Urine WBC (Auto) 0-5 /hpf (0-5) 01/26/25 06:18 Urine RBC (Auto) 0-2 /hpf (0-2) 01/26/25 06:18 U Hyaline Cast (Auto) 0-2 /lpf (0-2) 01/26/25 06:18 U Epithel Cells (Auto) 0-2 /hpf (0-2) 01/26/25 06:18 Urine Bacteria (Auto) None Seen (None Seen) 01/26/25 06:18
[2025-01-26] MEDS ORDERED: DEXAMETHASONE SOD INJ 4 MG/ML VIAL ONE (11:40)
[2025-01-26] MEDS ORDERED: LIDOCAINE 2% 2 ML VIAL/AMP(20MG/ML) INFIL ONE (11:41)
[2025-01-26] MEDS ORDERED: ROCURONIUM BROMIDE 10 MG/ML 5 ML VIAL IV ONE (11:41)
[2025-01-26] MEDS ORDERED: PROPOFOL IV EMULSION 10 MG/ML 20 ML VIAL IV ONE (11:41)
[2025-01-26] MEDS ORDERED: MIDAZOLAM HCL 1 MG/ML 2ML VIAL ONE (11:41)
[2025-01-26] MEDS ORDERED: ONDANSETRON INJ 2 MG/ML 2 ML VIAL ONE (11:41)
[2025-01-26] MEDS: LACTATED RINGER'S 1,000 ML IV SCH (11:54)
[2025-01-26] MEDS ORDERED: KETAMINE HCL 10MG/ML SYR ONE (11:58)
[2025-01-26] MEDS ORDERED: ACETAMINOPHEN 1000 MG/100 ML IV IV ONE (12:51)
[2025-01-26] MEDS: BUPIVACAINE/EPINEPHRINE 0.5% MPF 1:200,000 30 ML VIAL ONE (12:57)
[2025-01-26] MEDS: LIDOCAINE 1% LOCAL 20 ML VIAL ONE (12:57)
[2025-01-26] MEDS ORDERED: KETOROLAC 30 MG/ML VIAL ONE (13:06)
[2025-01-26] MEDS ORDERED: SUGAMMADEX SODIUM 200 MG/2 ML VIAL IV ONE (13:14)
--- NOTE | 2025-01-26 13:50 | Anesthesiology Progress Note ---
Date of Service January 26, 2025 Anesthesia Post Procedure Vital Signs Vital Signs: Temp Pulse Pulse Resp BP BP Pulse Ox 01/26/25 13:40 75 15 134/85 99 01/26/25 13:31 36.5 C 77 21 141/94 H 100 01/26/25 11:48 36.9 C 82 18 122/77 97 01/26/25 10:30 113/74 01/26/25 10:30 72 24 01/26/25 10:20 90 01/26/25 10:00 64 16 97 01/26/25 10:00 118/78 01/26/25 09:30 103/74 01/26/25 09:30 71 15 95 01/26/25 09:00 76 23 95 01/26/25 09:00 120/81 01/26/25 08:30 71 20 94 01/26/25 08:30 116/80 01/26/25 08:00 113/74 01/26/25 08:00 73 20 94 01/26/25 07:30 124/76 01/26/25 07:30 78 18 94 01/26/25 07:00 115/81 01/26/25 07:00 78 17 94 01/26/25 06:20 87 18 95 01/26/25 06:10 97 H 01/26/25 06:10 97 H 22 141/88 H 95 01/26/25 05:58 37.2 C 110 H 18 137/86 95 O2 Del Method O2 Flow Rate 01/26/25 13:40 Oxymask 5 01/26/25 13:31 Oxymask 5 01/26/25 11:48 Room Air 01/26/25 10:30 01/26/25 10:30 01/26/25 10:20 01/26/25 10:00 Room Air 01/26/25 10:00 01/26/25 09:30 01/26/25 09:30 Room Air 01/26/25 09:00 Room Air 01/26/25 09:00 01/26/25 08:30 Room Air 01/26/25 08:30 01/26/25 08:00 01/26/25 08:00 01/26/25 07:30 01/26/25 07:30 01/26/25 07:00 01/26/25 07:00 01/26/25 06:20 Room Air 01/26/25 06:10 01/26/25 06:10 Room Air 01/26/25 05:58 Room Air Pain Intensity Right Lower Abdomen: Pain Intensity: 4 Transfer of Care Handoff Completed per policy Notes Mental Status: alert / awake / arousable Patient Amnestic to Procedure: Yes Nausea / Vomiting: adequately controlled Pain: adequately controlled Airway Patency, RR, SpO2: stable & adequate BP & HR: stable & adequate Hydration State: stable & adequate Anesthetic Complications: no major complications apparent and Pt Satisfied with anesthetic care
[2025-01-26] MEDS ORDERED: MoRPHine SULFATE 2 MG/ML CARP IV PRN (15:09)
[2025-01-26] MEDS: PIPERACILLIN/TAZOBACTAM 4.5 GM/100 ML BAG IV SCH (15:10)
[2025-01-26] MEDS: SODIUM CHLORIDE 0.9% 1,000 ML IV SCH (15:18)
[2025-01-26] MEDS: MoRPHine SULFATE 4 MG/ML 1 ML CARP\\VIAL IV PRN (15:20)
--- NOTE | 2025-01-26 15:25 | Operative Report ---
PG Post Operative Report Pre & Post Diagnosis Operation Date: 01/26/25 10:20 Pre-Op Diagnosis: Acute appendicitis Post-Op Diagnosis: Acute appendicitis with perforation I identified the patient and participated in the time-out.: Yes Procedure Operation Date: 01/26/25 10:20 Actual Procedures p Laparoscopic Appendectomy - Dottie Fuller MD Surgeon Dottie Fuller MD Message Broker Developer Gloria Willis PA-C Estimated Blood Loss 15 Findings See Below (Patient with perforated appendicitis) Specimens Appendix Drains None Indications This is a 45-year-old male with a history of abdominal pain that began 2 to 3 days ago. He reports he did have some improvement of his abdominal pain but then it worsened again. Workup revealed possible acute appendicitis with fecalith and surrounding small bowel irritation likely due to appendicitis. He presents now for laparoscopic appendectomy, possible open appendectomy and all other indicated procedures. Risks of the procedure were discussed with the patient and they include bleeding, infection, injury to surrounding structures, need for further procedures, retained appendix, appendiceal stump leak, wound issues to include wound infection, dehiscence, and hernia, and cardiopulmonary events that can occur. Alternatives include no surgery, which patient declines. Patient wishes to proceed with surgery. All questions were answered. Description of Procedure [facility] [place] [address] Operative Report Signed Patient: LOVE HERNANDEZ Admit Date: 01/23/25 MR#: [id number] Att Phy: Mahendra Bautista MD Acct ID: [id number] Legal Sex: F cc: ~ Description of Procedure Informed consent was verified and site of surgery was verified and the patient was brought back to the operating room. General anesthesia was administered. She was in the supine position. Her abdomen was prepped and draped in the usual sterile fashion. A surgical timeout was performed and there were no issues. Next, a left upper quadrant incision was made and a Veress needle was inserted and the abdomen was insufflated to about 15 mmHg. Next, a 30 degree laparoscope was inserted with a 5 mm trocar using the Optiview technique. The abdomen was inspected. There was no evidence of any injuries to any structures from entry into the abdominal cavity. Next, under direct vision, 2 additional ports were placed, one was a left lower quadrant port and this was a 12 mm port and one was a 5 mm port placed suprapubically. The appendix was identified. It was seen to be inflamed and had an area of perforation. There was purulent fluid that was expressed and suctioned. There was additional small bowel that was matted around it and the cecum also was inflamed and irritated. The appendix was gently dissected away from the rest of the bowel. It was gently grasped and the mesoappendix was divided using the LigaSure device. The base of the appendix was transected using the Endo OTILIA stapler, white load with care taken to avoid narrowing of the ileocecal valve and care taken to ensure that the entire appendix was removed at its base going into the cecum. Next, the miladis endix was placed in Endo Catch bag and removed under direct vision. Next, the abdomen was inspected, there was some murky fluid in the pelvis that was suctioned. The staple line of the appendix was examined, there was no evidence of any bile drainage. The there was some ooziness at the staple line and clip doughnut maker was used to clip these areas and the oozing is stopped. The fascia of the left lower quadrant port was closed under direct vision with a 0 Vicryl suture and a fascial closure device as well as 0 Vicryl suture at the level of the fascia from the skin level. The skin was closed using 4 Monocryl. Local anesthesia was also infiltrated. Sterile dressing was applied and the patient was weaned off anesthesia and transferred to recovery in stable condition. He tolerated the procedure well. Physician production assistant, Gloria Willis, was essential for all aspects of the case, including into the abdomen, exposure, dissection, transection of appendix, and closure of abdomen and transport of patient. I attest to the content of the Intraoperative Record and any orders documented therein. Any exceptions are noted below.
[2025-01-26] MEDS: ACETAMINOPHEN 1,000 MG/100 ML VIAL IV PRN (23:26)
[2025-01-27 07:39] LABS: Hematocrit (blood only) 39.4 % (42.0-52.0); Hemoglobin 13.7 g/dL (14.0-18.0); Immature Granulocytes # (auto) 0.04 K/uL (0.01-0.20); Immature Granulocytes % (auto) 0.4 %; Mean Corpuscular Hemoglobin 31.4 pg (25.0-34.0); Mean Corpuscular Volume 90.4 fL (80.0-100.0); Platelet Count 179 K/uL (130-400); RDW Standard Deviation 40.0 fL (36.4-46.3); Red Blood Count 4.36 M/uL (4.70-6.10); White Blood Count 10.10 K/ul (4.8-10.8)
[2025-01-27 08:17] LABS: Anion Gap 9.0 (3-11); Blood Urea Nitrogen 15.0 mg/dl (6-23); Calcium 8.9 mg/dl (8.6-10.3); Carbon Dioxide 26.0 mmol/L (21-32); Chloride 101.0 mmol/L (98-107); Creatinine Clr Calc Pharmacy 105.4 ml/min; Glucose 149.0 mg/dl (70-99(Fasting)); Potassium 3.9 mmol/L (3.5-5.1); Sodium 136.0 mmol/L (136-145)
--- NOTE | 2025-01-27 10:15 | Surgery Progress Note ---
<Statement entered by Dottie Fuller MD - 01/27/25 17:14> Independently saw the patient and agree with the assessment and plan of care Date of Service January 27, 2025 Assessment & Plan (1) Acute appendicitis: Plan: POD#1 laparoscopic appendectomy for perforated appendicitis WBC 10 (17), Hbg 13.9. Vitals are stable and patient is afebrile Expected post op discomfort noted, incisions c/d/i with some surrounding ecchymosis Tolerating a diet, no n/v. Continue IV abx for perforation, once stable for discharge to home will transition to orals Encourage OOB/ambulation Admission and Anticipated Discharge Date Admission Date: January 26, 2025 Subjective Patient said he was having some pain this AM requiring IV narcotic. Now he does feel better. He is tolerating a diet without n/v. He is passing small amounts of gas and feels things rumbling. Pain mostly in the LLQ incision site. He is ambulating and voiding. Physical Exam Physical Exam: awake/alert, no distress Respiratory: normal respiratory effort Gastrointestinal (Abdomen): Inspection/Auscultation: + abdomen distended (mild) and + abdominal surgical incision (c/d/i with dermabond, no infection, some ecchymosis of each incision noted) Percussion/Palpation: + abdomen tender (ttp danny incisionally, worse at LLQ incision) and abdomen soft Results & Data Vital Signs (Past 12 Hours) Vital Signs Temp Pulse Resp BP Pulse Ox O2 Del Method 01/27/25 08:04 98.5 F 74 20 129/71 96 Room Air 01/27/25 02:49 97.7 F 49 L 16 124/82 99 Room Air 01/26/25 23:30 98.1 F 51 L 18 118/75 97 Room Air PG Care Time/CCT Total # of Minutes Spent Total Time Spent with Patient: Total time spent is greater than 50% in coordination of care (as documented) at patient's floor/unit and/or counseling patient: Coding Level of Care Code 60408 Post Operative Follow-Up Diagnoses Acute appendicitis K35.80
[2025-01-27 19:41] VITALS: RESP 16
[2025-01-28 07:14] LABS: Hematocrit (blood only) 33.9 % (42.0-52.0); Hemoglobin 12.0 g/dL (14.0-18.0); Immature Granulocytes # (auto) 0.05 K/uL (0.01-0.20); Immature Granulocytes % (auto) 0.7 %; Mean Corpuscular Hemoglobin 31.8 pg (25.0-34.0); Mean Corpuscular Volume 89.9 fL (80.0-100.0); Platelet Count 198 K/uL (130-400); RDW Standard Deviation 39.8 fL (36.4-46.3); Red Blood Count 3.77 M/uL (4.70-6.10); White Blood Count 6.92 K/ul (4.8-10.8)
[2025-01-28 07:32] VITALS: BP 129/84
[2025-01-28 07:34] LABS: Anion Gap 7.0 (3-11); Blood Urea Nitrogen 18.0 mg/dl (6-23); Calcium 8.3 mg/dl (8.6-10.3); Carbon Dioxide 28.0 mmol/L (21-32); Chloride 102.0 mmol/L (98-107); Creatinine Clr Calc Pharmacy 95.5 ml/min; Glucose 109.0 mg/dl (70-99(Fasting)); Potassium 3.9 mmol/L (3.5-5.1); Sodium 137.0 mmol/L (136-145)
--- NOTE | 2025-01-28 09:18 | Surgery Progress Note ---
<Statement entered by Dottie Fuller MD - 01/28/25 12:57> I independently saw and examined the patient, and I agree with the assessment and plan of care. Date of Service January 28, 2025 Assessment & Plan (1) Acute appendicitis: Plan: POD#1 laparoscopic appendectomy for perforated appendicitis WBC 6.9, Hbg 12. Vitals stable Expected post op discomfort, managed with prn pain meds Tolerating diet, no n/v. Some flatus, no BM yet Incisions c/d/i Will transition to oral abx. Also requesting stool softener Will plan on d/c to home today, complete 1 week course of abx D/c instructions reviewed, f/u in the office with Dr. Fuller in 2 weeks Admission and Anticipated Discharge Date Admission Date: January 26, 2025 Subjective Patient feels fine overall. Expected post op discomfort. Tolerating diet, no n/v. Passing some gas Physical Exam Physical Exam: awake/alert, no distress Gastrointestinal (Abdomen): Percussion/Palpation: + abdomen tender (expected post op discomfort) and abdomen soft incisions are c/d/i with dermabond. no signs of infection. some mild ecchymosis Results & Data Vital Signs (Past 12 Hours) Vital Signs Temp Pulse Resp BP Pulse Ox O2 Del Method 01/28/25 07:30 97.7 F 51 L 16 129/84 100 Room Air 01/28/25 02:53 97.8 F 53 L 16 130/82 99 Room Air 01/27/25 22:49 98.3 F 60 16 128/84 97 Room Air PG Care Time/CCT Total # of Minutes Spent Total Time Spent with Patient: Total time spent is greater than 50% in coordination of care (as documented) at patient's floor/unit and/or counseling patient: Coding Level of Care Code 72544 Post Operative Follow-Up Diagnoses Acute appendicitis K35.80
[2025-01-28] MEDS: POLYETHYLENE (MIRALAX) 17 GM PACK PO SCH (10:06)
[2025-01-28 11:48] VITALS: PULSE 57; TEMP 97.4; O2SAT 95
== END 2025-01-28 12:12 | disposition home or self-care (01) ==
LOC: ED 05:53 → 3N 05:53